=== PATIENT | female | born 1960 | race Caucasian/White ===

== ENCOUNTER 2018-02-08 00:39 | Inpatient (IN) | payer OTHER, MEDICAID ==
[~2018-02-08] VITALS: Ht 160 cm; Wt 106.6 kg
[~2018-02-08 00:39] MED LIST: COZAAR 25 MG TA25 M1 PO; CYMBALTA30 MG PO; DEXILANT60 MG PO; FLEXERIL PO; HYDROXYCHLOROQ200 M1 PO; INDERAL40 MG PO; KLOR-CON 1010 MEQ PO; LASIX; LEFLUNOMIDE 1010 MG PO; LEVOTHYROXIN0.025 MG PO; LIPITOR 20 MG T20 M1 PO; METFORMIN HCL500 MG PO; MOBIC15 MG PO; MUPIROCIN22 GM INTRADERM; NEURONTIN 300300 M1 PO; NORTRIPTYLINE H75 M1 GT; POTASSIUM99 M1; RANITIDINE HCL300 MG PO; RESTORIL30 MG PO; TOPAMAX 100 MG100 MG PO; TRAMADOL 50 MG50 MG PO
[2018-02-08 00:41] VITALS: BP 152/90
[2018-02-08] MEDS ORDERED: SYNTHROID50 MCG PO (00:50)
[2018-02-08] MEDS ORDERED: ABILIFY10 MG PO (00:50)
[2018-02-08] MEDS ORDERED: NEXIUM40 MG PO (00:51)
[2018-02-08] MEDS ORDERED: LASIX 40 MG TAB40 M2 PO (00:52)
[2018-02-08] MEDS ORDERED: ANTIVERT25 MG PO (00:54)
[2018-02-08 01:12] LABS: ABSOLUTE BASOPHILS 0.1 thou/uL (0.0-0.2); ABSOLUTE EOSINOPHILS 0.1 thou/uL (0.0-0.7); ABSOLUTE LYMPHOCYTES 2.8 thou/uL (0.8-5.3); ABSOLUTE NEUTROPHILS 6.5 thou/uL (1.6-8.1); EOSINOPHILS 0.6 %; HEMATOCRIT 35.5 % (37.0-47.0); HEMOGLOBIN 11.9 gm/dL (12.0-15.0); LYMPHOCYTES 27.1 %; MCH 32.1 pg (26.0-34.0); MCHC 33.5 g/dL (28.0-37.0); MCV 95.8 fL (80.0-100.0); MONOCYTES 9.3 %; MPV 7.9 fl. (7.2-11.1); NUCLEATED RBCS 0 /100WBC; PLATELET COUNT* 303 thou/uL (150-400); RBC 3.71 mil/uL (4.20-5.00); RDW-CV 13.9 % (10.5-14.5); WBC 10.5 thou/uL (4.0-11.0)
[2018-02-08 01:22] LABS: ANION GAP 8 mmol/L (7-16); BUN 9 mg/dL (7-18); CALCIUM 9.8 mg/dL (8.5-10.1); CHLORIDE 102 mmol/L (98-107); CO2 26 mmol/L (21-32); CREATININE 0.9 mg/dL (0.6-1.3); GLUCOSE 187 mg/dL (70-99); POTASSIUM 3.8 mmol/L (3.5-5.1); SODIUM 136 mmol/L (136-145)
[2018-02-08 01:29] LABS: PROTIME 9.8 Seconds (9.20-11.50)
[2018-02-08 01:33] LABS: ALBUMIN 3.3 g/dL (3.4-5.0); ALKALINE PHOSPHATASE 101 U/L (46-116); LIPASE 98 U/L (73-393); NT-PRO BRAIN NAT PEPTIDE 1169 pg/mL (<300); SGOT 19 U/L (15-37); SGPT 39 U/L (30-65); TOTAL BILIRUBIN 0.4 mg/dL (<0.1-1.0); TOTAL PROTEIN 7.4 g/dL (6.4-8.2); TROPONIN-I LEVEL <0.06 ng/mL (<0.06)
[2018-02-08 04:02] LABS: URINE BILIRUBIN NEGATIVE (Negative); URINE BLOOD NEGATIVE (Negative); URINE CLARITY SL CLOUDY; URINE COLOR YELLOW; URINE GLUCOSE-RANDOM NEGATIVE (Negative); URINE KETONES NEGATIVE (Negative); URINE LEUKOCYTES-REFLEX TRACE (Negative); URINE PROTEIN NEGATIVE (Negative); URINE UROBILINOGEN 0.2 E.U./dl (0.2-1.0)
[2018-02-08 04:06] LABS: URINE NITRITE-REFLEX POSITIVE (Negative)
[2018-02-08 05:03] LABS: CASTS None Seen /LPF (None Seen); SQUAMOUS >10 Many /LPF (0-3)
[2018-02-08 05:04] LABS: BACTERIA-REFLEX >30 Many /HPF (None Seen); CRYSTALS None Seen /LPF (None Seen); URINE RBC 0-2 Rare /HPF (0-2); WBC CLUMPS Moderate (None Seen)
[2018-02-08 05:32] LABS: pH 7.361 (7.340-7.450)
[2018-02-08 05:33] VITALS: BP 97/60
[2018-02-08 05:34] LABS: HCO3 29.5 mmol/L (22.0-26.0); PCO2 53.3 mmHg (35.0-45.0); PO2 108.1 mmHg (75.0-100.0)
[2018-02-08 06:00] VITALS: BP 99/60
--- NOTE | 2018-02-08 11:09 | EKG ---
[place] [address] ELECTROCARDIOGRAM REPORT Name: PAIGE WATERS Room: [address] ADM IN M.R.#: [id number] Admission: 02/08/18 Attend Phys: Alanna Jordan MD Discharge: Date of : 56 Report #: [id number] THIS REPORT FOR: //name// [facility] ED Test Date: 2018-02-08 Test Time: 00:43:27 Pat Name: PAIGE WATERS Department: Room: [facility] Gender: F [employer]: [place] : 1960 Requested By: Mee Dc Order Number: [id number] MD: Randy Luciano Measurements Intervals [place] Rate: 112 P: 74 MT: 169 QRS: 68 QRSD: 95 T: 117 QT: 303 QTc: 414 Interpretive Statements Sinus tachycardia Consider right atrial enlargement Nonspecific T abnrm, anterolateral leads Minimal ST elevation, inferior leads Compared to ECG 09/23/2016 17:04:46 ST (T wave) deviation now present Sinus rhythm no longer present Electronically Signed On 02-08-2018 11:09:17 CDT by Randy Luciano [email or web address] <ELECTRONICALLY SIGNED> By: Randy Luciano MD, FAC 02/08/18 1109 0043 0043 Randy Luciano MD, FAC /EPI
[2018-02-08 17:41] VITALS: BP 105/61
[2018-02-08] MEDS ORDERED: LEVEMIR SUBQ (18:44)
[2018-02-09 00:22] VITALS: BP 111/70
[2018-02-09 04:26] LABS: ABSOLUTE LYMPHOCYTES 1.5 thou/uL (0.8-5.3); ABSOLUTE MONOCYTES 0.6 thou/uL (0.0-1.2); ABSOLUTE NEUTROPHILS 8.3 thou/uL (1.6-8.1); BASOPHILS 0.3 %; EOSINOPHILS 0.1 %; HEMATOCRIT 34.8 % (37.0-47.0); HEMOGLOBIN 11.6 gm/dL (12.0-15.0); LYMPHOCYTES 14.2 %; MCHC 33.3 g/dL (28.0-37.0); MPV 8.4 fl. (7.2-11.1); NUCLEATED RBCS 0 /100WBC; PLATELET COUNT* 303 thou/uL (150-400); POLYS 79.4 %; RBC 3.63 mil/uL (4.20-5.00); RDW-CV 13.5 % (10.5-14.5); WBC 10.4 thou/uL (4.0-11.0)
[2018-02-09 04:27] LABS: CALCIUM 9.3 mg/dL (8.5-10.1); POTASSIUM 4.7 mmol/L (3.5-5.1)
[2018-02-09 08:00] VITALS: BP 118/73
[2018-02-09 16:00] VITALS: BP 103/61
--- NOTE | 2018-02-09 16:49 | CARDNUC ---
[place] [address] CARDIAC NUCLEAR IMAGING REPORT Name: PAIGE WATERS Room: [address] IN [facility].#: [id number] Admission: 02/08/18 Attend Phys: Alanna Jordan, Discharge: Date of : 56 Date of Service: 02/09/18 1649 Report #: [id number] THIS REPORT FOR: //name// APPROVED REPORT Study performed: 02/08/2018 13:49:00 Indication: chest pain Patient Location: In-Patient Stress Tech: Tawanna Xavier Stress Nurse: Ernestina Weber RN Ht: 5 ft 5 in Wt: 235 lbs BSA: 2.12 m2 BMI: 39.10 Medical History Medical History: hyperlipidemia, hyptertension, tia, diabetes Medications: losartan, lasix, statin Allergies: nkda Cardiac Risk Factors: age, hyperlipidemia, hypertension, diabetes, family hx Previous Cardiac Procedures: none Exercise History: Sedentary Resting Data Rest SPECT myocardial perfusion imaging was performed in supine position 30 minutes following the intravenous injection of 40.0 mCi of Tc-99m Sestamibi. Time of rest injection: 15:15 Date: 02/08/2018 The images were gated to evaluate regional wall motion and calculate left ventricular ejection fraction. Administration Route: IV Administration Site: Right Arm Pharmacologic Stress Pharmacologic stress test was performed by injecting Regadenoson 0.4 mg IV push over 10-15 seconds immediately followed by the intravenous injection of 39.9 mCi of Tc-99m Sestamibi. Time of stress injection: 09:30 Date: 02/09/2018 Administration Route: IV Administration Site: Right Arm Heart Rate at time of stress injection: 108 bpm. Gated Stress SPECT was performed 40 minutes [place] [address] CARDIAC NUCLEAR IMAGING REPORT Name: PAIGE WATERS Room: [address] IN ..#: [id number] Admission: 02/08/18 Attend Phys: Alanna Jordan, Discharge: Date of : 56 Date of Service: 02/09/18 1649 Report #: [id number] The images were gated to evaluate regional wall motion and calculate left ventricular ejection fraction. Prone imaging was performed. Stress Test Details Stress Test: Pharmacologic stress testing performed using 0.4 mg of regadenoson per 5 mL given IV over 10 seconds. Reason for pharmacologic stress test: physical limitation. HR Max Heart Rate (APMHR): 161 bpm Resting HR: 94 bpm Target HR (85% APMHR): 136 bpm Max HR Achieved: 108 bpm % of APMHR: 67 Recovery HR: 105 bpm BP Resting BP: 116/74 mmHg Recovery BP: 126/69 mmHg ECG Resting ECG: Sinus Rhythm Stress ECG: Sinus Rhythm ST Change: None Arrhythmia: None Recovery ECG: Sinus Rhythm Recovery ST Change: None Recovery Arrhythmia: None Clinical Reason for Termination: Completed protocol Exercise duration: 0 min sec Exercise capacity: 1 METs The patient had no significant symptoms with Lexiscan infusion. Stress ECG Conclusion The baseline 12-lead EKG shows sinus rhythm with nonspecific T-wave flattening. EKGs obtained during and post Lexiscan infusion show sinus rhythm with no significant ST or T wave changes when compared to baseline. There were no significant stress-induced arrhythmias. Study Quality Study: Good Artifact: [place] [address] CARDIAC NUCLEAR IMAGING REPORT Name: PAIGE WATERS Room: [address] IN [facility]#: [id number] Admission: 02/08/18 Attend Phys: Alanna Jordan, Discharge: Date of : 56 Date of Service: 02/09/18 1649 Report #: [id number] Study Data At rest, the left ventricular ejection fraction was 58%.. Post stress, the left ventricular ejection was 65%.. Perfusion There is a focal moderate fixed defect of the anterolateral apex. No other fixed or reversible defects were identified. Wall Motion There is mild hypokinesis of the apex. No other wall motion abnormalities identified. Nuclear Conclusion ECG Findings: negative for ischemia Clinical Findings: negative for ischemia Nuclear Findings: negative for ischemia Exercise Capacity: not assessed Left Ventricular Function: preserved Myocardial perfusion images show a fixed defect as outlined above suggestive of prior focal apical infarct. Global LV systolic function is well-preserved. This is not a high risk study. <Conclusion> The baseline 12-lead EKG shows sinus rhythm with nonspecific T-wave flattening. EKGs obtained during and post Lexiscan infusion show sinus rhythm with no significant ST or T wave changes when compared to baseline. There were no significant stress-induced arrhythmias. <ELECTRONICALLY SIGNED> By: Rustam Veras MD, FACC 02/09/18 1649 48 48 Rustam Veras MD, FACC /INF
[2018-02-09 19:34] VITALS: BP 104/64
[2018-02-10 04:14] LABS: ABSOLUTE BASOPHILS 0.1 thou/uL (0.0-0.2); ABSOLUTE EOSINOPHILS 0.2 thou/uL (0.0-0.7); ABSOLUTE LYMPHOCYTES 3.2 thou/uL (0.8-5.3); ABSOLUTE MONOCYTES 0.8 thou/uL (0.0-1.2); ABSOLUTE NEUTROPHILS 5.9 thou/uL (1.6-8.1); BASOPHILS 0.6 %; EOSINOPHILS 1.8 %; HEMATOCRIT 34.7 % (37.0-47.0); HEMOGLOBIN 11.5 gm/dL (12.0-15.0); LYMPHOCYTES 31.9 %; MCH 31.9 pg (26.0-34.0); MCHC 33.1 g/dL (28.0-37.0); MCV 96.6 fL (80.0-100.0); MONOCYTES 7.7 %; MPV 8.1 fl. (7.2-11.1); NUCLEATED RBCS 0 /100WBC; PLATELET COUNT* 329 thou/uL (150-400); RBC 3.59 mil/uL (4.20-5.00); RDW-CV 13.4 % (10.5-14.5); WBC 10.2 thou/uL (4.0-11.0)
[2018-02-10 04:42] LABS: ALBUMIN 2.8 g/dL (3.4-5.0); CALCIUM 8.8 mg/dL (8.5-10.1); CREATININE 1.1 mg/dL (0.6-1.3); POTASSIUM 3.9 mmol/L (3.5-5.1); TOTAL BILIRUBIN 0.1 mg/dL (<0.1-1.0); TOTAL PROTEIN 6.8 g/dL (6.4-8.2)
[2018-02-10 07:45] VITALS: BP 124/72
[2018-02-10] MEDS ORDERED: PREDNISONE 10 M10 MG PO (12:34)
[2018-02-10] MEDS ORDERED: CEFUROXIME500 MG PO (12:36)
[2018-02-10] MEDS ORDERED: PROTONIX40 M1 PO (12:37)
[2018-02-10 12:39] VITALS: BP 124/72
[2018-02-10 12:57] VITALS: BP 124/72
--- NOTE | 2018-02-16 12:53 | CON ---
[address] [address] CONSULTATION Name: PAIGE WATERS Room: [address] IN .R.#: [id number] Admission: 02/08/18 Attend Phys: Alanna Jordan MD Discharge: 02/10/18 Date of : 56 Report #: [id number] THIS REPORT FOR: //name// CC: Tyler Jordan DATE OF SERVICE: 02/08/2018 CHIEF COMPLAINT: Chest pain. HISTORY OF PRESENT ILLNESS: The patient is a 57-year-old female with a history of chest pain. This has been going on for 3 days. It is occurring at rest. It is a pressure sensation. It has radiated to her left arm. It is pretty much there all day long. She presents with EKG with sinus rhythm with nonspecific ST-segment changes. Her cardiac troponin level was normal. There was concern because of her shortness of breath that she may also have an underlying pulmonary embolus, so a CT scan of the chest was performed last night, which was negative for pulmonary embolus. Her cardiac troponin levels are normal x 2 sets. Historically, she has no significant exertional symptoms. She admits she is not very functional. She is on disability and has other medical problems. She has no documented history of coronary artery disease. She had a stress test in 2014, which was normal. She has chronic epigastric abdominal pain, mononucleosis, weakness, hypertension, diabetes mellitus, hypothyroidism and hyperlipidemia. HOME MEDICATIONS: Include Restoril p.r.n., ranitidine, meloxicam p.r.n., potassium chloride 10 mEq p.o. b.i.d., Synthroid 50 mcg daily, Abilify, esomeprazole 40 mg daily, Lasix 40 mg daily, losartan 25 mg daily, Flexeril, metformin 500 mg p.o. b.i.d., atorvastatin 20 mg daily and gabapentin 300 mg p.o. t.i.d. PAST SURGICAL HISTORY: Prior hysterectomy, , oophorectomy. She has remote cardiac catheterization in 1997. SOCIAL HISTORY: She is a nonsmoker. She does not drink. REVIEW OF SYSTEMS: GENERAL: No fevers or chills. PULMONARY: She has no history of wheezing or cough. RENAL: She has no history of kidney failure. MUSCULOSKELETAL: No joint pain or swelling. SKIN: [place] [address] CONSULTATION Name: WATERSPAIGE Room: [address] IN [facility]#: [id number] Admission: 02/08/18 Attend Phys: Alanna Jordan MD Discharge: 02/10/18 Date of : 56 Report #: [id number] NEUROLOGIC: Denies seizures. HEMATOLOGIC: No anemia. PHYSICAL EXAMINATION: VITAL SIGNS: Blood pressure was normal at 100/60s, sinus rhythm in 90s. She is afebrile. O2 sats 100% on 2 liters. GENERAL: This is a pleasant, obese, middle-aged female. She is alert, in no apparent distress. HEENT: Eyes are intact. No facial asymmetry. NECK: Supple. No jugular venous distention. CARDIOVASCULAR: Regular. I cannot hear a murmur. LUNGS: Clear to auscultation bilaterally. ABDOMEN: Soft, nontender. EXTREMITIES: There is no peripheral edema. SKIN: Warm and dry. Electrocardiogram demonstrates a sinus rhythm, sinus tachycardia with normal appearing ST segments. Hemoglobin is 11.9. Troponin I is 0.06 x 2 sets. INR is 1.0. Hemoglobin 11.9, white blood cell count is 10.5 and platelet count is 303,000. Chest x-ray and CTA demonstrates no evidence of pulmonary embolus. There is bilateral posterior lung opacities, left greater than right suggestive of atelectasis, hepatomegaly with diffuse hepatic steatosis. IMPRESSION: 1. Chest pain. Her symptoms could be related to an anginal process as she does have some cardiovascular risk factors. There is a component of it that makes think it could be pleuritic or possibly pericarditis. I would like to trial her on colchicine. We will evaluate her chest pain symptoms with the Lexiscan stress test. 2. Diabetes mellitus per hospital colleagues. Continue with oral therapy. 3. Hypertension. This is stable. Continue with current medical therapy. 4. Hyperlipidemia. I will continue with her statin therapy with goal LDL of 70. <ELECTRONICALLY SIGNED> By: Randy Luciano MD, [facility] 02/16/18 1253 1339 [id number] Luciano MD, FACC /nt
== END 2018-02-10 12:59 | disposition home or self-care (01) | DRG 205 ==
LOC: M.ERS 00:39 → M.TBA-ER 04:49 → M.3W 04:49
PROVIDERS: Emergency Medicine; Internal Medicine; ADMIT Internal Medicine
DX: M94.0 Chondrocostal junction syndrome [Tietze] (principal); J96.21 Acute and chronic respiratory failure with hypoxia; N39.0 Urinary tract infection, site not specified; I50.32 Chronic diastolic (congestive) heart failure; R65.10 Systemic inflammatory response syndrome (SIRS) of non-infectious origin without acute organ dysfunction; Z68.41 Body mass index [BMI] 40.0-44.9, adult; J98.11 Atelectasis; J45.909 Unspecified asthma, uncomplicated; K21.9 Gastro-esophageal reflux disease without esophagitis; E78.5 Hyperlipidemia, unspecified; F41.9 Anxiety disorder, unspecified; F32.9 Major depressive disorder, single episode, unspecified; G47.33 Obstructive sleep apnea (adult) (pediatric); E66.01 Morbid (severe) obesity due to excess calories; E11.9 Type 2 diabetes mellitus without complications; M19.90 Unspecified osteoarthritis, unspecified site; M06.9 Rheumatoid arthritis, unspecified; Z98.891 History of uterine scar from previous surgery; Z90.710 Acquired absence of both cervix and uterus; Z90.722 Acquired absence of ovaries, bilateral; Z79.84 Long term (current) use of oral hypoglycemic drugs; Z79.899 Other long term (current) drug therapy

== ENCOUNTER → 2018-06-30 | Outpatient (CLI) | payer OTHER, MEDICAID ==
[~2018-06-30] MED LIST changes: +ABILIFY10 MG PO; +ANTIVERT25 MG PO; +CEFUROXIME500 MG PO; +LASIX 40 MG TAB40 M2 PO; +LEVEMIR SUBQ; +NEXIUM40 MG PO; +PREDNISONE 10 M10 MG PO; +PROTONIX40 M1 PO; +SYNTHROID50 MCG PO
== END ==
LOC: M.RAD 09:03
DX: Z12.31 Encounter for screening mammogram for malignant neoplasm of breast (principal); M47.816 Spondylosis without myelopathy or radiculopathy, lumbar region; M43.17 Spondylolisthesis, lumbosacral region; R29.6 Repeated falls

== ENCOUNTER → 2018-11-24 | Outpatient (CLI) | payer OTHER, MEDICAID | LOC: M.RAD 14:50 | DX: M47.814 Spondylosis without myelopathy or radiculopathy, thoracic region (principal); R07.89 Other chest pain ==